=== PATIENT | male | born 1965 | race Caucasian/White ===

== ENCOUNTER 2016-10-29 17:53 | Emergency (ER) | payer OTHER ==
[~2016-10-29] VITALS: Ht 177.8 cm; Wt 108.9 kg
[2016-10-29 17:55] VITALS: BP 182/123
--- NOTE | 2016-10-29 18:01 | NUR ---
pt to bed 4
--- NOTE | 2016-10-29 18:10 | NUR ---
POSSIBLE SEIZURE ACTIVITY X1 DAY. PT STATES HE FEELS ELECTRICAL IMPULSE IN BRAIN AND STATES HE COULD NOT SPEAK; DENIES N/V/D; SKIN IS PINK/WARM/DRY; AAOX4 WITH EVEN AND STEADY GAIT; LUNGS CLEAR BL; HR EVEN AND REGULAR; PT DENIES ANY FEVER, CP, SOB, OR COUGH AT THIS TIME; PATIENT STATES PAIN OF 0/10 AT THIS TIME; VSS; PATIENT POSITIONED FOR COMFORT; HOB ELEVATED; BEDRAILS UP X2; BED DOWN. ER MD MADE AWARE OF PT STATUS.
--- NOTE | 2016-10-29 18:18 | NUR ---
AAO PT WITH AT BEDSIDE BEING ASSESS BY DR KAY
--- NOTE | 2016-10-29 19:10 | NUR ---
AAO PT TAKEN TO CT VIA GURNEY BY BEAD FLIPPER
--- NOTE | 2016-10-29 19:18 | NUR ---
REPORT GIVEN TO MEERA ADAMS
--- NOTE | 2016-10-29 19:33 | NUR ---
PT ON MONITOR, NO RESP DISTRESS NOTED AT THE MOMENT. C/O TO BE IN PAIN BUT REFUSED ANY MEDICATION FOR PAIN. ER MD AT BED SIDE. DR MARSHALL OF VS.
[2016-10-29 21:55] VITALS: BP 145/89
--- NOTE | 2016-10-29 21:55 | NUR ---
PER ER MD PT STABLE FOR DISCHARGE. Written and verbal after care instructions given and explained. Patient verbalized understanding. Ambulatory with steady gait. NO DISTRESS NOTED AT THE MOMENT.All questions addressed prior to discharge. Advised to follow up with PMD OR RETURN TO EMERGENCY ROOM IF CONDITION GETS WORSE.
== END 2016-10-29 21:55 | disposition home or self-care (01) ==
LOC: MED 17:53
DX: R56.9 Unspecified convulsions (principal); I10 Essential (primary) hypertension; Z98.890 Other specified postprocedural states
CPT/HCPCS: 36415; 70450; 71010; 80053; 80305; 83735; 84484; 85025; 85610; 85730; 93005; 99285; Q0092

== ENCOUNTER 2023-07-01 06:00 | Emergency (ER) | payer OTHER ==
[~2023-07-01] VITALS: Ht 177.8 cm; Wt 117.9 kg
[2023-07-01 06:02] VITALS: BP_SYST 170; BP_SYST 173; BP_DIAS 79; BP_DIAS 86; PULSE 86; RESP 17; TEMP 97.6; O2SAT 97
[2023-07-01] MEDS ORDERED: OFLO5SOL27 RIGHT EAR (06:20)
[2023-07-01] MEDS ORDERED: ACET-10509 PO (06:33)
[2023-07-01] MEDS ORDERED: oxyCODONE/APAP 5/325 MG 1 TAB TAB PO ONE (06:35)
[2023-07-01 06:50] VITALS: BP 157/70; PULSE 86; RESP 17; TEMP 97.6; O2SAT 97
== END 2023-07-01 06:50 | disposition home or self-care (01) ==
LOC: MED 06:00
DX: H72.91 Unspecified perforation of tympanic membrane, right ear (principal); H91.91 Unspecified hearing loss, right ear; H92.21 Otorrhagia, right ear; I10 Essential (primary) hypertension; F17.200 Nicotine dependence, unspecified, uncomplicated; Z71.6 Tobacco abuse counseling; Z98.890 Other specified postprocedural states; Z79.899 Other long term (current) drug therapy
CPT/HCPCS: 99283

== ENCOUNTER 2023-08-08 09:20 | Emergency (ER) | payer OTHER ==
[~2023-08-08] VITALS: Ht 177.8 cm; Wt 114.8 kg
[~2023-08-08 09:20] MED LIST: ACET-10509 PO; OFLO5SOL27 RIGHT EAR
[2023-08-08 09:36] VITALS: BP 157/76; PULSE 85; RESP 18; TEMP 97.6; O2SAT 96
[2023-08-08] MEDS ORDERED: KETOROLAC 60 MG/2 ML VIAL IM ONE (11:15)
[2023-08-08] MEDS ORDERED: CEPH-588 PO (11:27)
[2023-08-08] MEDS ORDERED: IBUP-2213 PO (11:27)
[2023-08-08 11:48] VITALS: BP 157/76; PULSE 85; RESP 18; TEMP 97.6; O2SAT 96
== END 2023-08-08 11:38 | disposition home or self-care (01) ==
LOC: MED 09:20
DX: L03.116 Cellulitis of left lower limb (principal); F17.200 Nicotine dependence, unspecified, uncomplicated; Z98.890 Other specified postprocedural states; Z96.649 Presence of unspecified artificial hip joint; Z79.899 Other long term (current) drug therapy
CPT/HCPCS: 96372; 99283; J1885